=== PATIENT | male | born 1975 | race Caucasian/White ===

== ENCOUNTER 2016-07-27 16:42 | Emergency (ER) | payer MEDICAID, OTHER ==
[~2016-07-27] VITALS: Wt 136.0 kg
[~2016-07-27 16:42] MED LIST: OMEP20CA9 PO
[2016-07-27] MEDS ORDERED: POLY10DR19 BOTH EYES (17:08)
[2016-07-27] MEDS ORDERED: D-ME473S18 PO (17:08)
[2016-07-27] MEDS ORDERED: AZIT250T94 PO (17:08)
--- NOTE | 2016-07-27 17:14 | ERD ---
ER Documentation Chief Complaint Date/Time DATE: 07/27/16 TIME: 17:10 Chief Complaint left ear pain for the past few days and sore throat HPI This 41-year-old male complains of a one-week history of bilateral eye discharge which is yellow. He is usually worse in the morning. Denies any pain or visual changes or visual field deficits. He has no additional complaint of left ear pain and congestion and cough. He has no history of measured fevers, shortness of breath, chest pain, vomiting, abdominal pain, diarrhea. ROS All systems reviewed and are negative except as per history of present illness. Medications Home Meds Active Scripts Dextromethorphan Hb-Promethazine Hcl (Promethazine DM Syrup) 473 Ml Syrup, 5 ML PO Q6H Y for COUGH , #4 OZ Prov:LILLIAN GARCIA MD 07/27/16 Polymyxin B Sulfate-TMP* (Polymyxin B-TMP Eye Drops*) 10 Ml Drops, 1 DROP BOTH EYES QID for 7 Days, EA Prov:LILLIAN GARCIA MD 07/27/16 Azithromycin* (Zithromax*) 250 Mg Tablet, 250 MG PO .ZPACK DIRECTED, #6 TAB TAKE 500 MG (2 TABS) THE FIRST DAY THEN 250 MG (1 TAB) DAYS 2-5 Prov:LILLIAN GARCIA MD 07/27/16 Reported Medications Omeprazole* (Prilosec*) 20 Mg Capsule.dr, 20 MG PO DAILY, CAP 07/28/14 Allergies Allergies: Coded Allergies: No Known Allergy (Unverified , 07/28/14) PMhx/Soc History of Surgery: No Anesthesia Reaction: No Hx Neurological Disorder: No Hx Respiratory Disorders: No Hx Cardiac Disorders: No Hx Psychiatric Problems: No Hx Miscellaneous Medical Probl: Yes (GERD) Hx Alcohol Use: No Hx Substance Use: No Hx Tobacco Use: No Physical Exam Vitals Vital Signs Date Time Temp Pulse Resp B/P Pulse Ox O2 Delivery O2 Flow Rate FiO2 07/27/16 16:50 98.2 105 22 160/74 98 Physical Exam Const: [] Head: Atraumatic Eyes: Normal Conjunctiva ENT: Normal External Ears, Nose and Mouth. Neck: Full range of motion..~ No meningismus. Resp: Clear to auscultation bilaterally Cardio: Regular rate and rhythm, no murmurs Abd: Soft, non tender, non distended. Normal bowel sounds Skin: No petechiae or rashes Back: No midline or flank tenderness Ext: No cyanosis, or edema Neur: Awake and alert Psych: Normal Mood and Affect Procedures/MDM Patient presents with a one-week history of URI symptoms, left pain with signs of otitis media and signs of conjunctivitis. Signs and symptoms are not consistent with corneal abrasion, optic neuritis, retinal artery ischemia, orbital cellulitis. He will be treated with Zithromax, Polytrim and Promethazine DM. The patient was stable with no new complaints during the ER course. Clinically, there is no current evidence to suggest meningitis, sepsis, acute abdomen, pneumonia, acute coronary syndrome, pulmonary embolism, or any other emergent condition appearing to require further evaluation or hospitalization. The patient should certainly return for any new or worsening symptoms per the aftercare instructions. They should otherwise follow-up with her primary care doctor for reevaluation this week. Patient additionally is noted to have some elevated blood pressure during his visit today. He will be advised to follow-up with primary doctor for evaluation blood pressure as well. Departure Diagnosis: Primary Impression: Otitis media Otitis media type: suppurative Laterality: left Chronicity: acute Recurrence: recurrent Spontaneous tympanic membrane rupture: without spontaneous rupture Qualified Code: H66.005 - Recurrent acute suppurative otitis media without spontaneous rupture of left tympanic membrane Additional Impressions: Conjunctivitis Conjunctivitis type: acute Acute conjunctivitis type: bacterial Laterality : bilateral Qualified Code: H10.33 - Acute bacterial conjunctivitis of both eyes Hypertension Hypertension type: essential hypertension Qualified Code: I10 - Essential hypertension Condition: Stable Patient Instructions: Conjunctivitis, Non-Specific, Otitis Media, Abx Tx (Adult ) Additional Instructions: Recheck for new or worsening symptoms or primary care doctor. LILLIAN GARCIA MD Jul 27, 2016 17:14
== END 2016-07-27 17:36 | disposition home or self-care (01) ==
LOC: FTE 16:42
DX: H66.005 Acute suppurative otitis media without spontaneous rupture of ear drum, recurrent, left ear (principal); H10.33 Unspecified acute conjunctivitis, bilateral; I10 Essential (primary) hypertension
CPT/HCPCS: 99284

== ENCOUNTER 2016-10-07 22:22 | Emergency (ER) | payer OTHER ==
[~2016-10-07] VITALS: Ht 175.3 cm; Wt 158.5 kg
[~2016-10-07 22:22] MED LIST changes: +AZIT250T94 PO; +D-ME473S18 PO; +POLY10DR19 BOTH EYES
[2016-10-07 23:21] VITALS: Ht 175.3 cm; Wt 158.5 kg
[2016-10-08] MEDS ORDERED: IBUP800T25 PO (00:20)
[2016-10-08] MEDS ORDERED: ERYTOPOI BOTH EYES (00:20)
--- NOTE | 2016-10-08 00:30 | ERD ---
ER Documentation Chief Complaint Date/Time DATE: 10/08/16 TIME: 00:27 Chief Complaint left ear pain x2 months HPI Patient is a pleasant 41-year-old male who states he has had a left-sided earache on and off for the past 2 months. Denies fever. Denies any trauma. Denies any bleeding or drainage from the ear. Does state that time he has pain over his TMJ. He also states that in the morning he wakes up with purulent drainage from his left eye and crusting. Denies fever. Denies any nausea vomiting diarrhea. ROS All systems reviewed and are negative except as per history of present illness. Medications Home Meds Active Scripts Ibuprofen* (Motrin*) 800 Mg Tab, 800 MG PO Q6H Y for PAIN AND OR ELEVATED TEMP, #30 TAB Prov:MARLO AMBRIZ PA-C 10/08/16 Erythromycin* (Erythromycin* Ophthalmic) 1 Applic Oint, 1 APPLIC BOTH EYES QID for 7 Days, EA Prov:MARLO AMBRIZ PA-C 10/08/16 Dextromethorphan Hb-Promethazine Hcl (Promethazine DM Syrup) 473 Ml Syrup, 5 ML PO Q6H Y for COUGH , #4 OZ Prov:LILLIAN GARCIA MD 07/27/16 Polymyxin B Sulfate-TMP* (Polymyxin B-TMP Eye Drops*) 10 Ml Drops, 1 DROP BOTH EYES QID for 7 Days, EA Prov:LILLIAN GARCIA MD 07/27/16 Azithromycin* (Zithromax*) 250 Mg Tablet, 250 MG PO .ZPACK DIRECTED, #6 TAB TAKE 500 MG (2 TABS) THE FIRST DAY THEN 250 MG (1 TAB) DAYS 2-5 Prov:LILLIAN GARCIA MD 07/27/16 Reported Medications Omeprazole* (Prilosec*) 20 Mg Capsule.dr, 20 MG PO DAILY, CAP 07/28/14 Allergies Allergies: Coded Allergies: No Known Allergy (Unverified , 07/28/14) PMhx/Soc Medical and Surgical Hx: pt denies Medical Hx History of Surgery: No Anesthesia Reaction: No Hx Neurological Disorder: No Hx Respiratory Disorders: No Hx Cardiac Disorders: No Hx Psychiatric Problems: No Hx Miscellaneous Medical Probl: Yes (GERD) Hx Alcohol Use: No Hx Substance Use: No Hx Tobacco Use: No Smoking Status: Never smoker FmHx Family History: No diabetes Physical Exam Vitals Vital Signs Date Time Temp Pulse Resp B/P Pulse Ox O2 Delivery O2 Flow Rate FiO2 10/07/16 23:21 97.2 90 18 132/83 97 Physical Exam General: well developed, well nourished, alert, nontoxic, no distress Head: normocephalic, atraumatic Eyes: PERRL, normal conjunctiva Neck: Supple, nontender, no lymphadenopathy, no midline tenderness Ears: no tenderness over mastoids bilaterally, TMs nonerythematous, no exudates in canal Oropharynx: no tonsilar erythema or edema, uvula midline, no exudates, no kissing tonsils, no drooling Respiratory: Clear to auscaultation bilaterally, speaks in full sentences, no use of accesory muscles or labored breathing, no rales, ronchi, or wheezing Cardiovascular: RRR, No murmurs Procedures/MDM Patient is a 41-year-old male who presents with left-sided earache that he has had for 2 months. His ear examination is normal and there is no evidence of ear infection. There is no evidence of mastoiditis. The way he describes it makes it seem as if it may be otalgia versus TMJ. Gave her prescription for ibuprofen recommended he try this medication regularly for a few days to see if it improves his symptoms. I also gave him a refill of erythromycin ophthalmic ointment as he states he has been waking up with purulent draining and crusting in his eyes although at this time his eye examination is normal. Recommended this patient follow up with her primary care doctor within 48 hours or return to the emergency room for any worsening of symptoms. However this time I do believe there is suitable for outpatient management. I answered all their questions and they agreed with the plan and were discharged home. Departure Diagnosis: Primary Impression: Conjunctivitis Additional Impression: Otalgia Condition: Stable Patient Instructions: Understanding Temporomandibular Disorders (TMD) Additional Instructions: Call your primary care doctor TOMORROW for an appointment during the next 1-2 days.See the doctor sooner or return here if your condition worsens before your appointment time. MARLO AMBRIZ PA-C Oct 08, 2016 00:30
== END 2016-10-08 01:11 | disposition home or self-care (01) ==
LOC: FTE 22:22
DX: H10.9 Unspecified conjunctivitis (principal)
CPT/HCPCS: 99283